=== PATIENT | female | born 1935 | race Caucasian/White ===

== ENCOUNTER → 2016-10-25 | Outpatient (CLI) | payer OTHER ==
[~2016-10-25] MED LIST: ACETAMINOPHEN500 MG PO; ACID REDUCER150 MG; ALENDRONATE SOD70 MG PO; ASPIRIN ADULT L81 MG PO; ATORVASTATIN CA20 MG PO; CEFTIN500 MG PO; CLOPIDOGREL75 MG PO; FERROUS SULFAT325 M1 PO; FLORAJEN3 PO; FUROSEMIDE20 MG PO; KLOR-CON 1010 MEQ PO; LEVOTHYROXINE75 MCG PO; LEVOTHYROXINE88 MCG PO; LOPERAMIDE HCL2 MG PO; METOPROLOL TART25 MG PO; NITROFURANTOIN50 MG PO; NITROSTAT0.4 MG SL; PANTOPRAZOLE SO40 MG PO; PROCHLORPERAZINE5 MG PO; VITAMIN B-12250 MCG PO; VITAMIN D33000 UNIT PO
--- NOTE | 2016-10-26 12:41 | DIAGNOSTIC IMAGING REPORT ---
PROCEDURE: MG BILATERAL DIAGNOSTIC W/CAD INDICATION: BREAST PAIN RIGHT TECHNIQUE: CC and MLO digital views of each breast with true-lateral digital view of the right breast. In addition, high-resolution right breast ultrasound was performed (18 mHz). COMPARISON: Comparison made to 03/10/2015, 06/10/2008, and 03/04/2007. FINDINGS: MAMMOGRAM: Computer-aided detection applied. Moderately dense parenchymal pattern. No evidence of mass or suspicious calcification. BREAST ULTRASOUND: Normal parenchyma. No evidence of mass or cyst. IMPRESSION: 1. Negative mammogram and negative right breast ultrasound. 2. Findings discussed with the patient. 3. Resume routine screening schedule (September 2017). RESULT CODE: 1- Negative. A. A negative report should not delay biopsy if a dominant or clinically suspicious mass is present. 10-15% of cancers are not identified by x-ray. B. A negative report may reinforce clinical impression. C. Adenosis and dense breasts may obscure an underlying neoplasm. D. False positive reports average 6-10%. E.. A yearly screening mammogram is recommended. A reminder letter will be scheduled.
== END ==
LOC: MAM SRH 08-30 15:00 → US SRH 08-30 15:00 → MAM SRH 10-04 11:30
DX: N64.4 Mastodynia (principal)